=== PATIENT | female | born 1985 | race Caucasian/White ===

== ENCOUNTER 2019-03-15 14:18 | Emergency (ER) | payer MEDICAID, OTHER ==
[~2019-03-15] VITALS: Ht 152.4 cm; Wt 61.4 kg
[2019-03-15 15:00] VITALS: BP 149/95
[2019-03-15] MEDS ORDERED: LIDOcaine 1% w/epiNEPHrine 1:200,000 30ml vial IM ONE (15:55)
[2019-03-15] MEDS ORDERED: DOXY100C43 PO (16:08)
[2019-03-15] MEDS ORDERED: IBUP-1984 PO (16:08)
--- NOTE | 2019-03-15 16:34 | NUR ---
Vinnie HANSON at bedside to explain procedure, pt refusing to have procedure done "I need pain medication....I am going to leave...this is ridiculous...just give me my antibiotic and I will go", pt was dc'd with dc instructions and prescription, I&D not done
== END 2019-03-15 16:37 | disposition home or self-care (01) ==
LOC: ER 14:19
DX: L02.31 Cutaneous abscess of buttock (principal); Z56.0 Unemployment, unspecified; Z59.0 Homelessness; Z79.2 Long term (current) use of antibiotics; Z79.899 Other long term (current) drug therapy
CPT/HCPCS: 96372; 99283

== ENCOUNTER 2019-09-12 15:12 | Emergency (ER) | payer MEDICAID, OTHER ==
[~2019-09-12] VITALS: Ht 154.9 cm; Wt 60.0 kg
[2019-09-12 15:25] VITALS: BP 143/95
[2019-09-12] MEDS ORDERED: LIDOcaine 1% W/epiNEPHrine 1:200,000 10ml vial IJ ONE (15:55)
[2019-09-12] MEDS ORDERED: DOXY100C43 PO (16:24)
[2019-09-12] MEDS ORDERED: acetaminophen 325mg tablet PO ONE (17:05)
== END 2019-09-12 17:46 | disposition home or self-care (01) ==
LOC: ER 15:12
DX: L02.413 Cutaneous abscess of right upper limb (principal); Z59.0 Homelessness; Z56.0 Unemployment, unspecified; Z88.0 Allergy status to penicillin; Z79.899 Other long term (current) drug therapy
CPT/HCPCS: 10060; 99283

== ENCOUNTER 2020-03-14 23:55 | Emergency (ER) | payer MEDICAID ==
[~2020-03-14] VITALS: Ht 152.4 cm; Wt 56.4 kg
[2020-03-15 00:03] VITALS: BP 146/77
== END 2020-03-15 01:04 | disposition left against medical advice (07) ==
LOC: ER 23:56
DX: S09.90XA Unspecified injury of head, initial encounter (principal); Z53.21 Procedure and treatment not carried out due to patient leaving prior to being seen by health care provider

== ENCOUNTER 2020-03-30 03:30 | Emergency (ER) | payer MEDICAID ==
[~2020-03-30] VITALS: Ht 152.4 cm; Wt 53.6 kg
[2020-03-30 03:33] VITALS: BP 150/104
[2020-03-30] MEDS ORDERED: ibuprofen tablet 400 MG TABLET PO ONE (04:00)
[2020-03-30] MEDS ORDERED: acetaminophen 325mg tablet PO ONE (04:00)
== END 2020-03-30 04:06 | disposition home or self-care (01) ==
LOC: ER 03:31
DX: S90.562A Insect bite (nonvenomous), left ankle, initial encounter (principal); F17.200 Nicotine dependence, unspecified, uncomplicated; F12.90 Cannabis use, unspecified, uncomplicated; Z56.0 Unemployment, unspecified; Z98.890 Other specified postprocedural states; Z59.0 Homelessness; Z88.0 Allergy status to penicillin; W57.XXXA Bitten or stung by nonvenomous insect and other nonvenomous arthropods, initial encounter; Y93.89 Activity, other specified; Y92.89 Other specified places as the place of occurrence of the external cause; Y99.8 Other external cause status
CPT/HCPCS: 99283

== ENCOUNTER 2020-04-01 18:18 | Emergency (ER) | payer MEDICAID ==
[~2020-04-01] VITALS: Ht 152.4 cm; Wt 53.6 kg
[~2020-04-01 18:18] MED LIST: LIDOcaine 1% 30ml preserv. free vial ONE
[2020-04-01 18:24] VITALS: BP 169/92
[2020-04-01] MEDS ORDERED: CefTRIAXone 250MG IM Kit w/LIDOcaine IM ONE (19:30)
[2020-04-01] MEDS ORDERED: ibuprofen tablet 400 MG TABLET PO ONE (19:30)
[2020-04-01] MEDS ORDERED: sulfamethoxazole/trimethoprim DS (800/160mg) tablet PO ONE (19:30)
[2020-04-01] MEDS ORDERED: azithromycin 250mg tablet PO ONE (19:30)
[2020-04-01] MEDS ORDERED: SULF1TAB49 PO (19:31)
[2020-04-01] MEDS ORDERED: IBUP-1986 PO (19:31)
== END 2020-04-01 20:05 | disposition home or self-care (01) ==
LOC: ER 18:18
DX: L02.416 Cutaneous abscess of left lower limb (principal); M25.572 Pain in left ankle and joints of left foot; R22.9 Localized swelling, mass and lump, unspecified; F12.90 Cannabis use, unspecified, uncomplicated; Z98.890 Other specified postprocedural states; Z56.0 Unemployment, unspecified; Z59.0 Homelessness; Z88.0 Allergy status to penicillin; Z79.2 Long term (current) use of antibiotics; Z79.899 Other long term (current) drug therapy
CPT/HCPCS: 10060; 36415; 87491; 87591; 96372; 99284; J0696; J2001

== ENCOUNTER 2020-11-12 00:49 | Emergency (ER) | payer MEDICAID ==
[~2020-11-12] VITALS: Ht 152.4 cm; Wt 56.0 kg
[~2020-11-12 00:49] MED LIST changes: +IBUP-1986 PO; -LIDOcaine 1% 30ml preserv. free vial ONE
[2020-11-12 00:51] VITALS: BP 139/104
[2020-11-12] MEDS ORDERED: acetaminophen 325mg tablet PO ONE (01:45)
== END 2020-11-12 02:06 | disposition home or self-care (01) ==
LOC: ER 00:49
DX: R10.31 Right lower quadrant pain (principal); F12.90 Cannabis use, unspecified, uncomplicated; Z59.0 Homelessness; Z56.0 Unemployment, unspecified; Z98.890 Other specified postprocedural states; Z88.0 Allergy status to penicillin; Z79.899 Other long term (current) drug therapy
CPT/HCPCS: 99282

== ENCOUNTER 2020-11-26 12:43 | Emergency (ER) | payer MEDICAID ==
[~2020-11-26] VITALS: Ht 154.9 cm; Wt 56.8 kg
[2020-11-26 13:17] VITALS: BP 152/101
--- NOTE | 2020-11-26 15:47 | NUR ---
NOT IN LOBBY
== END 2020-11-26 16:46 | disposition left against medical advice (07) ==
LOC: ER 12:43
DX: H92.01 Otalgia, right ear (principal); Z53.21 Procedure and treatment not carried out due to patient leaving prior to being seen by health care provider

== ENCOUNTER 2020-11-29 03:30 | Emergency (ER) | payer MEDICAID ==
[~2020-11-29] VITALS: Ht 152.4 cm; Wt 56.0 kg
[2020-11-29 03:41] VITALS: BP 146/101
== END 2020-11-29 04:12 | disposition home or self-care (01) ==
LOC: ER 03:30
DX: H61.21 Impacted cerumen, right ear (principal); F12.90 Cannabis use, unspecified, uncomplicated; Z59.0 Homelessness; Z98.890 Other specified postprocedural states; Z56.0 Unemployment, unspecified; Z88.0 Allergy status to penicillin; Z79.899 Other long term (current) drug therapy
CPT/HCPCS: 69210; 99282; 99284

== ENCOUNTER 2020-12-19 11:30 | Emergency (ER) | payer MEDICAID ==
[~2020-12-19] VITALS: Ht 152.4 cm; Wt 54.1 kg
[2020-12-19 11:41] VITALS: BP 161/107
--- NOTE | 2020-12-19 13:30 | NUR ---
Called patient, not in lobby. Registration stated patient stated that she was going to go to an urgent care clinic. Dr. Rachel harvey.
== END 2020-12-19 13:32 | disposition left against medical advice (07) ==
LOC: ER 11:30
DX: M54.5 Low back pain (principal); Z53.21 Procedure and treatment not carried out due to patient leaving prior to being seen by health care provider

== ENCOUNTER → 2020-12-21 | Emergency (ER) | payer MEDICAID ==
[~2020-12-21] VITALS: Ht 152.4 cm; Wt 54.5 kg
[2020-12-21 23:32] VITALS: BP 130/90
--- NOTE | 2020-12-22 02:28 | NUR ---
Roll called x3 in the lobby. Pt. not present. No reliable number in chart.
== END | disposition home or self-care (01) ==
LOC: ER 22:39
DX: H92.01 Otalgia, right ear (principal); Z53.21 Procedure and treatment not carried out due to patient leaving prior to being seen by health care provider
CPT/HCPCS: 99281

== ENCOUNTER 2020-12-23 22:32 | Emergency (ER) | payer MEDICAID ==
[~2020-12-23] VITALS: Ht 152.4 cm; Wt 57.6 kg
[2020-12-23 22:59] VITALS: BP 132/90
--- NOTE | 2020-12-23 23:37 | NUR ---
pt to room, assumed care.
== END 2020-12-24 00:11 | disposition home or self-care (01) ==
LOC: ER 22:32
DX: Z02.89 Encounter for other administrative examinations (principal); R19.7 Diarrhea, unspecified; H92.01 Otalgia, right ear; R50.9 Fever, unspecified; R10.84 Generalized abdominal pain; F17.200 Nicotine dependence, unspecified, uncomplicated; F12.90 Cannabis use, unspecified, uncomplicated; F15.90 Other stimulant use, unspecified, uncomplicated; Z98.890 Other specified postprocedural states; Z56.0 Unemployment, unspecified; Z59.0 Homelessness; Z88.0 Allergy status to penicillin; Z79.899 Other long term (current) drug therapy
CPT/HCPCS: 99281

== ENCOUNTER 2021-01-04 03:26 | Emergency (ER) | payer MEDICAID ==
[~2021-01-04] VITALS: Ht 152.4 cm; Wt 59.1 kg
[2021-01-04 03:35] VITALS: BP 112/85
[2021-01-04 05:09] LABS: CLARITY,URINE SLIGHTLY CLOUDY (Clear); COLOR,URINE AMBER (Yellow); GLUCOSE, URINE NEGATIVE (Neg); KETONES,URINE TRACE mg/dl (Neg); LEUKOCYTE ESTERASE ,URINE NEGATIVE (Neg); NITRITES, URINE NEGATIVE (Neg); OCCULT BLOOD,URINE NEGATIVE (Neg); PROTEIN,URINE TRACE mg/dl (Neg); UROBILINOGEN,URINE >=8.0 E.U/dL (0.2-1.0)
[2021-01-04 05:16] LABS: UA COLLECTION TYPE CLN CATCH MIDSTREAM
[2021-01-04 05:18] LABS: WBC,URINE 0-4 /HPF (0-4)
[2021-01-04 05:19] LABS: RBC,URINE NONE SEEN /HPF (0-2)
[2021-01-04 05:24] LABS: BACTERIA,URINE FEW /HPF (Neg); MUCUS STRANDS MANY /LPF (Neg); SQUAMOUS EPITHELIAL CELL,UR MANY /LPF (FEW)
== END 2021-01-04 04:49 | disposition left against medical advice (07) ==
LOC: ER 03:27
DX: Z00.00 Encounter for general adult medical examination without abnormal findings (principal); R10.9 Unspecified abdominal pain; F15.90 Other stimulant use, unspecified, uncomplicated; F12.90 Cannabis use, unspecified, uncomplicated; Z59.0 Homelessness; Z56.0 Unemployment, unspecified; Z98.890 Other specified postprocedural states; Z88.0 Allergy status to penicillin; Z79.899 Other long term (current) drug therapy
CPT/HCPCS: 81001; 99283

== ENCOUNTER 2021-03-31 19:56 | Emergency (ER) | payer MEDICAID ==
[~2021-03-31] VITALS: Ht 152.4 cm; Wt 60.0 kg
[2021-03-31 20:25] VITALS: BP 136/90
== END 2021-03-31 21:44 | disposition left against medical advice (07) ==
LOC: ER 19:57
DX: H92.02 Otalgia, left ear (principal); Z53.21 Procedure and treatment not carried out due to patient leaving prior to being seen by health care provider
CPT/HCPCS: 99281

== ENCOUNTER 2021-06-23 17:29 | Emergency (ER) | payer MEDICAID | END 2021-06-23 18:14 | disposition left against medical advice (07) | LOC: ER 17:30 | DX: Z53.21 Procedure and treatment not carried out due to patient leaving prior to being seen by health care provider (principal) ==

== ENCOUNTER 2021-07-31 10:21 | Emergency (ER) | payer MEDICAID ==
[~2021-07-31] VITALS: Ht 152.4 cm; Wt 55.6 kg
[2021-07-31 10:28] VITALS: BP 137/91
== END 2021-07-31 11:29 | disposition left against medical advice (07) ==
LOC: ER 10:22
DX: M25.572 Pain in left ankle and joints of left foot (principal); Z53.21 Procedure and treatment not carried out due to patient leaving prior to being seen by health care provider

== ENCOUNTER 2022-01-04 01:22 | Emergency (ER) | payer MEDICAID ==
[~2022-01-04] VITALS: Ht 152.4 cm; Wt 53.2 kg
[2022-01-04 01:24] VITALS: BP 150/103
== END 2022-01-04 02:38 | disposition left against medical advice (07) ==
LOC: ER 01:22
DX: L08.9 Local infection of the skin and subcutaneous tissue, unspecified (principal); Z53.21 Procedure and treatment not carried out due to patient leaving prior to being seen by health care provider

== ENCOUNTER 2022-01-06 08:45 | Emergency (ER) | payer MEDICAID ==
[~2022-01-06] VITALS: Ht 152.4 cm; Wt 53.2 kg
[2022-01-06 09:06] VITALS: BP 147/115
[2022-01-06] MEDS ORDERED: bacitracin 15gm ointment TP ONE (09:55)
[2022-01-06] MEDS ORDERED: ibuprofen tablet 400 MG TABLET PO ONE (09:55)
== END 2022-01-06 11:07 | disposition home or self-care (01) ==
LOC: ER 08:46
DX: L02.413 Cutaneous abscess of right upper limb (principal); Z59.00 Homelessness unspecified; F12.90 Cannabis use, unspecified, uncomplicated; F15.90 Other stimulant use, unspecified, uncomplicated; Z56.0 Unemployment, unspecified; Z98.891 History of uterine scar from previous surgery; Z79.899 Other long term (current) drug therapy; Z88.0 Allergy status to penicillin; Z91.013 Allergy to seafood
CPT/HCPCS: 99282

== ENCOUNTER 2022-01-28 09:33 | Emergency (ER) | payer MEDICAID ==
[~2022-01-28] VITALS: Ht 154.9 cm; Wt 60.0 kg
[2022-01-28 09:42] VITALS: BP 175/122
[2022-01-28] MEDS ORDERED: ketorolac trometh. 30mg/ml inj. IV ONE (10:55)
[2022-01-28] MEDS ORDERED: amox tr/potassium clavulanate 875/125mg TAB PO ONE (10:55)
[2022-01-28] MEDS ORDERED: AMOX-117 PO (11:00)
== END 2022-01-28 11:17 | disposition home or self-care (01) ==
LOC: ER 09:34
DX: K04.7 Periapical abscess without sinus (principal); F12.90 Cannabis use, unspecified, uncomplicated; F15.20 Other stimulant dependence, uncomplicated; Z91.013 Allergy to seafood; Z88.0 Allergy status to penicillin; Z98.890 Other specified postprocedural states; Z56.0 Unemployment, unspecified; Z59.00 Homelessness unspecified
CPT/HCPCS: 96374; 99283; J1885

== ENCOUNTER 2022-01-30 15:56 | Emergency (ER) | payer MEDICAID ==
[~2022-01-30 15:56] MED LIST changes: +AMOX-117 PO
== END 2022-01-30 18:17 | disposition left against medical advice (07) ==
LOC: ER 15:58
DX: R09.81 Nasal congestion (principal); Z53.21 Procedure and treatment not carried out due to patient leaving prior to being seen by health care provider

== ENCOUNTER 2022-07-26 17:58 | Emergency (ER) | payer MEDICAID ==
[~2022-07-26] VITALS: Ht 152.4 cm; Wt 52.0 kg
[~2022-07-26 17:58] MED LIST changes: -AMOX-117 PO
[2022-07-26] MEDS ORDERED: ibuprofen 200mg tablet PO ONE (20:25)
[2022-07-26] MEDS ORDERED: sulfamethoxazole/trimethoprim DS (800/160mg) tablet PO ONE (20:25)
[2022-07-26] MEDS ORDERED: SULF1TAB49 PO (20:34)
[2022-07-26 21:07] VITALS: BP 158/98
[2022-07-27] MEDS ORDERED: terbinafine cream 30gm TP SCH (08:00)
== END 2022-07-26 21:09 | disposition home or self-care (01) ==
LOC: ER 17:59
DX: L03.116 Cellulitis of left lower limb (principal); L03.115 Cellulitis of right lower limb; R23.4 Changes in skin texture; F17.200 Nicotine dependence, unspecified, uncomplicated; F12.10 Cannabis abuse, uncomplicated; F15.10 Other stimulant abuse, uncomplicated; Z59.00 Homelessness unspecified; Z56.0 Unemployment, unspecified; Z91.013 Allergy to seafood; Z88.0 Allergy status to penicillin; Z79.899 Other long term (current) drug therapy
CPT/HCPCS: 99284

== ENCOUNTER 2022-08-07 18:39 | Emergency (ER) | payer MEDICAID ==
[~2022-08-07] VITALS: Ht 152.4 cm; Wt 52.7 kg
[2022-08-07 18:48] VITALS: BP 137/100
[2022-08-07] MEDS ORDERED: SULF1TAB49 PO (19:25)
[2022-08-07] MEDS ORDERED: sulfamethoxazole/trimethoprim DS (800/160mg) tablet PO ONE (19:30)
== END 2022-08-07 19:41 | disposition home or self-care (01) ==
LOC: ER 18:40
DX: L02.511 Cutaneous abscess of right hand (principal); F17.200 Nicotine dependence, unspecified, uncomplicated; F12.90 Cannabis use, unspecified, uncomplicated; F15.90 Other stimulant use, unspecified, uncomplicated; Z59.00 Homelessness unspecified; Z56.0 Unemployment, unspecified; Z98.890 Other specified postprocedural states; Z91.013 Allergy to seafood; Z88.0 Allergy status to penicillin; Z79.899 Other long term (current) drug therapy
CPT/HCPCS: 99283